=== PATIENT | female | born 1960 | race Caucasian/White ===

== ENCOUNTER → 2016-10-11 | Outpatient (CLI) | payer BC ==
[~2016-10-11] VITALS: Ht 162.6 cm; Wt 73.7 kg
[~2016-10-11] MED LIST: BIRTH CONTROL; CALCIUM-500 5001 CTB PO; CALCIUM600 MG PO; EPA FISH OIL1 SGL PO; EPA1000 MG; ONE DAILY MULTI1 TA1 PO; PREDNISONE20 MG PO
[2016-10-11 08:30] VITALS: BP 140/86; PULSE 76
== END ==
LOC: LIGHT 08:00
DX: N39.3 Stress incontinence (female) (male) (principal); E03.8 Other specified hypothyroidism; I10 Essential (primary) hypertension; E66.3 Overweight; Z68.28 Body mass index [BMI] 28.0-28.9, adult

== ENCOUNTER → 2016-10-30 | Outpatient (CLI) | payer BC | LOC: LIGHT 09:56 | DX: Z02.89 Encounter for other administrative examinations (principal) ==

== ENCOUNTER → 2016-11-09 | Outpatient (CLI) | payer BC ==
[~2016-11-09] VITALS: Ht 162.6 cm; Wt 72.6 kg
[2016-11-09 16:58] VITALS: BP 144/90; PULSE 58
== END ==
LOC: LIGHT 16:02
DX: Z02.89 Encounter for other administrative examinations (principal)

== ENCOUNTER → 2016-11-17 | Outpatient (CLI) | payer BC | LOC: LIGHT 16:14 | DX: Z02.89 Encounter for other administrative examinations (principal) ==

== ENCOUNTER → 2016-12-21 | Outpatient (CLI) | payer BC ==
[~2016-12-21] VITALS: Ht 162.6 cm; Wt 72.8 kg
[2016-12-21 16:32] VITALS: BP 131/90; PULSE 51
== END ==
LOC: LIGHT 10:29
DX: N39.3 Stress incontinence (female) (male) (principal); E03.9 Hypothyroidism, unspecified; E66.3 Overweight; Z68.27 Body mass index [BMI] 27.0-27.9, adult; Z71.3 Dietary counseling and surveillance; I10 Essential (primary) hypertension

== ENCOUNTER → 2017-01-18 | Outpatient (CLI) | payer BC ==
[~2017-01-18] VITALS: Ht 162.6 cm; Wt 72.1 kg
[2017-01-18 14:22] VITALS: BP 132/88; PULSE 72
== END ==
LOC: LIGHT 11:58
DX: N39.3 Stress incontinence (female) (male) (principal); E03.9 Hypothyroidism, unspecified; E66.3 Overweight; Z68.27 Body mass index [BMI] 27.0-27.9, adult; Z71.3 Dietary counseling and surveillance; I10 Essential (primary) hypertension

== ENCOUNTER → 2017-04-19 | Outpatient (CLI) | payer BC ==
[~2017-04-19] VITALS: Ht 162.6 cm; Wt 72.3 kg
[2017-04-19 16:06] VITALS: BP 144/90; PULSE 60
== END ==
LOC: LIGHT 10:47
DX: N39.3 Stress incontinence (female) (male) (principal); E03.9 Hypothyroidism, unspecified; E66.3 Overweight; Z68.27 Body mass index [BMI] 27.0-27.9, adult; Z71.3 Dietary counseling and surveillance; I10 Essential (primary) hypertension

== ENCOUNTER → 2017-05-24 | Outpatient (CLI) | payer BC ==
[~2017-05-24] VITALS: Ht 162.6 cm; Wt 72.6 kg
[2017-05-24 15:25] VITALS: BP 142/82; PULSE 60
== END ==
LOC: LIGHT 11:12
DX: N39.3 Stress incontinence (female) (male) (principal); E03.9 Hypothyroidism, unspecified; E66.3 Overweight; Z68.27 Body mass index [BMI] 27.0-27.9, adult; Z71.3 Dietary counseling and surveillance; I10 Essential (primary) hypertension

== ENCOUNTER → 2017-06-28 | Outpatient (CLI) | payer BC ==
[~2017-06-28] VITALS: Ht 162.6 cm; Wt 72.6 kg
[2017-06-28 15:28] VITALS: BP 130/84; PULSE 60
== END ==
LOC: LIGHT 10:13
DX: N39.3 Stress incontinence (female) (male) (principal); E03.9 Hypothyroidism, unspecified; E66.3 Overweight; Z68.27 Body mass index [BMI] 27.0-27.9, adult; Z71.3 Dietary counseling and surveillance; I10 Essential (primary) hypertension
CPT/HCPCS: G0463

== ENCOUNTER → 2017-09-06 | Outpatient (CLI) | payer BC ==
[~2017-09-06] VITALS: Ht 162.6 cm; Wt 73.5 kg
[2017-09-06 16:45] VITALS: BP 132/100; PULSE 68
== END ==
LOC: LIGHT 08-16 09:03
DX: N39.3 Stress incontinence (female) (male) (principal); E03.9 Hypothyroidism, unspecified; E66.3 Overweight; Z68.27 Body mass index [BMI] 27.0-27.9, adult; Z71.3 Dietary counseling and surveillance; I10 Essential (primary) hypertension
CPT/HCPCS: G0463

== ENCOUNTER → 2017-11-08 | Outpatient (CLI) | payer BC ==
[~2017-11-08] VITALS: Ht 162.6 cm; Wt 73.7 kg
[~2017-11-08] MED LIST changes: +PHENTERMINE15 MG PO
[2017-11-08 16:52] VITALS: BP 120/76; PULSE 60
== END ==
LOC: LIGHT 16:36
DX: N39.3 Stress incontinence (female) (male) (principal); E03.9 Hypothyroidism, unspecified; E66.3 Overweight; Z68.27 Body mass index [BMI] 27.0-27.9, adult; Z71.3 Dietary counseling and surveillance; I10 Essential (primary) hypertension
CPT/HCPCS: G0463

== ENCOUNTER → 2018-01-03 | Outpatient (CLI) | payer BC ==
[~2018-01-03] VITALS: Ht 162.6 cm; Wt 73.0 kg
[2018-01-03 09:12] VITALS: BP 148/92; PULSE 60
== END ==
LOC: LIGHT 09:03
DX: N39.3 Stress incontinence (female) (male) (principal); E03.9 Hypothyroidism, unspecified; E66.3 Overweight; Z68.27 Body mass index [BMI] 27.0-27.9, adult; Z71.3 Dietary counseling and surveillance; I10 Essential (primary) hypertension
CPT/HCPCS: G0463

== ENCOUNTER → 2018-08-12 | Outpatient (CLI) | payer BC | LOC: MC.RAD 07:27 | DX: Z12.31 Encounter for screening mammogram for malignant neoplasm of breast (principal) ==

== ENCOUNTER → 2020-09-24 | Outpatient (CLI) | payer BC | LOC: MC.RAD 08:38 | DX: Z12.31 Encounter for screening mammogram for malignant neoplasm of breast (principal) ==

== ENCOUNTER → 2021-11-04 | Outpatient (CLI) | payer BC | LOC: MC.RAD 14:00 | DX: Z12.31 Encounter for screening mammogram for malignant neoplasm of breast (principal) ==

== ENCOUNTER → 2023-10-25 | Outpatient (CLI) | payer BC | LOC: MC.RAD 13:15 | DX: Z12.31 Encounter for screening mammogram for malignant neoplasm of breast (principal) ==